=== PATIENT | male | born 1940 | race Caucasian/White ===

== ENCOUNTER → 2019-11-27 15:29 | Outpatient (CLI) | payer MEDICARE, OTHER, SELFPAY ==
[2019-11-27 18:27] LABS: Alanine Aminotransferase 36 IU/L (<50); Albumin 4.6 g/dL (3.5-5.0); Albumin Globulin Ratio 1.4 (1.0-2.8); Alkaline Phosphatase 47 U/L (38-126); Aspartate Aminotransferase 40 IU/L (17-59); BUN Creatinine Ratio 29.1 (6-22); Bilirubin Total 0.6 mg/dL (0.2-1.3); Blood Urea Nitrogen 39 mg/dL (9-20); Carbon Dioxide 22 mmol/L (22-32); Chloride 103 mmol/L (98-107); Digoxin 0.9 ng/mL (0.8-2.0); Estimated Glomerular Filt Rate 51.4 mL/min (>60); Globulin 3.2 g/dL (1.7-4.1); Glucose 188 mg/dL (80-110); Potassium 4.7 mmol/L (3.4-5.1); Sodium 138 mmol/L (137-145); Total Protein 7.8 g/dL (6.3-8.2)
[2019-11-27 18:29] LABS: HEMOLYSIS 80 (0-50)
== END ==
PROVIDERS: Family Provider Family Medicine; PCP Family Medicine; Referring Provider Nurse Practitioner; Visit Provider Nurse Practitioner
DX: Z51.81 Encounter for therapeutic drug level monitoring (principal); Z79.899 Other long term (current) drug therapy; I42.8 Other cardiomyopathies; I10 Essential (primary) hypertension
CPT/HCPCS: 36415; 80053; 80162

== ENCOUNTER → 2021-09-05 13:04 | Outpatient (CLI) | payer MEDICARE, OTHER, SELFPAY ==
[2021-09-05 19:25] LABS: BUN Creatinine Ratio 14.7 (6-22); Blood Urea Nitrogen 19 mg/dL (9-20); Calcium 9.7 mg/dL (8.4-10.2); Carbon Dioxide 29 mmol/L (22-32); Chloride 104 mmol/L (98-107); Estimated Glomerular Filt Rate 53.5 mL/min (>60); Glucose 200 mg/dL (80-110); HEMOLYSIS < 15 (0-50); Potassium 4.3 mmol/L (3.4-5.1); Sodium 142 mmol/L (137-145)
[2021-09-05 19:29] LABS: Digoxin 0.5 ng/mL (0.8-2.0)
== END ==
PROVIDERS: Family Provider Family Medicine; PCP Family Medicine; Visit Provider Internal Medicine Cardiovascular Disease
DX: I42.8 Other cardiomyopathies (principal); I10 Essential (primary) hypertension
CPT/HCPCS: 80048; 80162

== ENCOUNTER → 2021-09-23 11:28 | Outpatient (CLI) | payer MEDICARE, OTHER, SELFPAY ==
[2021-09-23 19:10] LABS: Add Manual Diff / Slide Review NO; Basophils Absolute Auto 100 /uL (0-100); Basophils Percent Auto 1.1 % (0-2); Eosinophils Absolute Auto 700 /uL (0-450); Eosinophils Percent Auto 10.7 % (2-4); Hematocrit 43.6 % (41-53); Hemoglobin 14.7 g/dL (13.5-17.5); Lymphocytes Absolute Auto 2300 /uL (1100-4500); Lymphocytes Percent Auto 35.8 % (25-40); Mean Corpuscular HGB Conc 33.7 % (30-36); Mean Corpuscular Hemoglobin 30.2 PG (26-34); Mean Corpuscular Volume 89.6 fL (80-100); Monocytes Absolute Auto 500 /uL (0-900); Monocytes Percent Auto 8.5 % (3-14); Neutrophils Absolute Auto 2800 /uL (1500-7000); Neutrophils Percent Auto 43.9 % (50-75); Platelet Count 173 X10^3/uL (150-400); Red Blood Cell Count 4.87 X10^6/uL (4.5-5.9); Red Cell Distribution Width 14.7 % (11.6-14.8); White Blood Cell Count 6.5 X10^3/uL (4.5-11.0)
[2021-09-23 19:27] LABS: Alanine Aminotransferase 39 IU/L (<50); Albumin 4.4 g/dL (3.5-5.0); Albumin Globulin Ratio 1.5 (1.0-2.8); Alkaline Phosphatase 33 U/L (38-126); Aspartate Aminotransferase 37 IU/L (17-59); BUN Creatinine Ratio 20.4 (6-22); Blood Urea Nitrogen 23 mg/dL (9-20); Calcium 9.7 mg/dL (8.4-10.2); Carbon Dioxide 28 mmol/L (22-32); Chloride 106 mmol/L (98-107); Cholesterol 176 mg/dL (140-199); Estimated Glomerular Filt Rate > 60.0 mL/min (>60); Glucose 72 mg/dL (80-110); HDL Cholesterol 27 mg/dL (40-60); HEMOLYSIS < 15 (0-50); LDL Cholesterol Calculated 101 mg/dL (<100); Potassium 4.1 mmol/L (3.4-5.1); Sodium 142 mmol/L (137-145); Total Protein 7.4 g/dL (6.3-8.2); Triglycerides 238 mg/dL (35-150)
[2021-09-23 19:28] LABS: Hemoglobin A1C% w Est Avg Glu 6.4 % (4.0-6.0)
== END ==
PROVIDERS: Family Provider Family Medicine; PCP Physician Assistant; Visit Provider Physician Assistant
DX: R97.20 Elevated prostate specific antigen [PSA] (principal); E11.40 Type 2 diabetes mellitus with diabetic neuropathy, unspecified; E78.5 Hyperlipidemia, unspecified; I10 Essential (primary) hypertension; Z12.5 Encounter for screening for malignant neoplasm of prostate
CPT/HCPCS: 80053; 80061; 83036; 84153; 85025

== ENCOUNTER → 2022-05-11 14:04 | Outpatient (CLI) | payer MEDICARE, OTHER, SELFPAY ==
[2022-05-11 19:58] LABS: Add Manual Diff / Slide Review NO; Basophils Absolute Auto 0 /uL (0-100); Basophils Percent Auto 0.6 % (0-2); Eosinophils Absolute Auto 300 /uL (0-450); Eosinophils Percent Auto 4.3 % (2-4); Hematocrit 45.3 % (41-53); Hemoglobin 15.4 g/dL (13.5-17.5); Lymphocytes Absolute Auto 2900 /uL (1100-4500); Mean Corpuscular HGB Conc 33.9 % (30-36); Mean Corpuscular Hemoglobin 30.3 PG (26-34); Mean Corpuscular Volume 89.3 fL (80-100); Monocytes Absolute Auto 600 /uL (0-900); Monocytes Percent Auto 7.4 % (3-14); Neutrophils Absolute Auto 3900 /uL (1500-7000); Neutrophils Percent Auto 50.7 % (50-75); Platelet Count 170 X10^3/uL (150-400); Red Blood Cell Count 5.07 X10^6/uL (4.5-5.9); Red Cell Distribution Width 14.4 % (11.6-14.8); White Blood Cell Count 7.7 X10^3/uL (4.5-11.0)
[2022-05-11 20:01] LABS: Hemoglobin A1C% w Est Avg Glu 6.7 % (4.0-6.0)
[2022-05-11 20:05] LABS: Digoxin 0.6 ng/mL (0.8-2.0)
[2022-05-11 20:46] LABS: Alanine Aminotransferase 41 IU/L (<50); Albumin 4.5 g/dL (3.5-5.0); Albumin Globulin Ratio 1.6 (1.0-2.8); Alkaline Phosphatase 38 U/L (38-126); Aspartate Aminotransferase 37 IU/L (17-59); BUN Creatinine Ratio 24.8 (6-22); Bilirubin Total 0.9 mg/dL (0.2-1.3); Blood Urea Nitrogen 26 mg/dL (9-20); Calcium 9.4 mg/dL (8.4-10.2); Carbon Dioxide 27 mmol/L (22-32); Chloride 105 mmol/L (98-107); Estimated Glomerular Filt Rate > 60 mL/min (>60); Globulin 2.8 g/dL (1.7-4.1); Glucose 85 mg/dL (80-110); HEMOLYSIS < 15 (0-50); Potassium 4.4 mmol/L (3.4-5.1); Sodium 141 mmol/L (137-145); Total Protein 7.3 g/dL (6.3-8.2)
== END ==
PROVIDERS: Internal Medicine Cardiovascular Disease; Family Provider Family Medicine; PCP Physician Assistant; Visit Provider Physician Assistant
DX: E11.40 Type 2 diabetes mellitus with diabetic neuropathy, unspecified (principal); I50.20 Unspecified systolic (congestive) heart failure; N18.9 Chronic kidney disease, unspecified; Z79.4 Long term (current) use of insulin; D72.10 Eosinophilia, unspecified
CPT/HCPCS: 80053; 80162; 83036; 85025

== ENCOUNTER → 2022-05-25 11:59 | Outpatient (CLI) | payer MEDICARE, OTHER, SELFPAY ==
--- NOTE | 2022-05-25 12:02 | DI.ECHO.S_ITS ---
[facility] +---------+ : : [address] : [place] : : : : [id number] : : : : Phone: [phone]---------+ Echocardiogram Report + + :Name: JOSE WATKINS Study Date: 05/25/2022 Height: 73 in : :[facility] ReadingLocation: Weight: 184 lb : : Gender: Male BSA: 2.1 m2 : :: 1940 Age: 82 yrs BP: 151/79 mmHg: :Reason For Study: SYSTOLIC HEART FAILURE : :Ordering Physician: RHONDA, : :DAFNE Performed By: Catherine Hodge : :Referring: DAFNE ELLIS : + + Interpretation Summary The left ventricle is mild-moderately dilated. LV end-diastolic dimension increased from 6.1cm to 6.3 cm. Left ventricular ejection fraction is estimated to be 35 +/- 5%. Previous LVEF 45A?5%. Compared to the prior exam, the left ventricular function is reduced. Global moderate hypokinesis with severe hypokinesis of inferior wall, basal to mid inferior septum. No significant change from the previous study. Mild LV dyssynchrony seen as well The right ventricle is normal in size and function. There is a pacemaker lead in the right ventricle. There is moderate mitral regurgitation. Previously mild to moderate MR. There is mild tricuspid regurgitation. The right ventricular systolic pressure is estimated to be at least 30 mmHg based on an estimated right atrial pressure of 3 mm Hg. Procedure: A two-dimensional transthoracic echocardiogram with color flow and Doppler was performed. The study quality was technically adequate. Comparison is made with the echocardiogram of 09/05/2017. The heart rate ranged between 58-69 bpm during the study. The patient has a paced rhythm. Left Ventricle: The left ventricle is mild-moderately dilated. Left ventricular wall thickness is at the upper limits of normal. There is no thrombus. A false chord is noted (normal variant). Left ventricular ejection fraction is estimated to be 35 +/- 5%. Compared to the prior exam, the left ventricular function is reduced. Global moderate hypokinesis with severe hypokinesis of inferior wall, basal to mid inferior septum. No significant change from the previous study. Mild LV dyssynchrony seen as well. Diastolic parameters suggest a relaxation abnormality of the left ventricle, consistent with probable normal filling pressures. Right Ventricle: There is a pacemaker lead in the right ventricle. The right ventricle is normal in size and function. Atria: The left atrium is severely dilated. The left atrium has significantly increased in size since the prior echo exam. Right atrial size is normal. There is no Doppler evidence for an interatrial shunt. Mitral Valve: There is mild mitral annular calcification. Tented mitral leaflets. There is moderate mitral regurgitation. Aortic Valve: The aortic valve is trileaflet. The aortic valve opens well. There is no aortic valve stenosis. No aortic regurgitation is present. Tricuspid Valve: The tricuspid valve is normal in structure and function. There is mild tricuspid regurgitation. The right ventricular systolic pressure is estimated to be at least 30 mmHg based on an estimated right atrial pressure of 3 mm Hg. Pulmonic Valve: The pulmonic valve leaflets are thin and pliable; valve motion is normal. There is no pulmonic valvular regurgitation. Great Vessels: The aortic root is mildly dilated. The dimensions of the ascending aorta are normal. The IVC is of normal diameter and collapses greater than 50% with a sniff. This suggests a low right atrial pressure of 3 mm Hg. Pericardium/ Pleura There is no pericardial effusion. There is no pleural effusion. MMode/2D Measurements & Calculations LVIDd: 6.3 cm LVOT diam: 2.4 cm LVIDs: 5.2 cm Ao root diam: 4.1 cm FS: 17.5 % asc Aorta Diam: 3.2 cm EPSS: 2.3 cm Ao Arch Diam (Prox Trans): 3.0 cm IVSd: 0.97 cm LVPWd: 1.2 cm LV wright. diameter/BSA (cm/m^2): 3.0 LV sys. diameter/BSA (cm/m^2): 2.5 LA A2 area: 30.2 cm2 RA long axis: 6.2 cm LA A4 area: 24.3 cm2 RA area: 18.9 cm2 LA length (vol): 5.8 cm RA vol: 49.1 ml LA vol: 107.5 ml RA : 23.6 ml/m2 LA vol index: 51.8 ml/m2 IVC diam: 1.4 cm RVD1 (basal): 3.9 cm RVD2 (mid): 3.1 cm TAPSE: 2.6 cm Doppler Measurements & Calculations Ao V2 max: 131.6 cm/sec LVOT Max Adam: 63.8 cm/sec Ao V2 mean: 98.2 cm/sec LV V1 max P.6 mmHg Ao max P.9 mmHg LV V1 VTI: 13.3 cm Ao mean P.1 mmHg RAMIREZ(I,D): 2.1 cm2 Ao V2 VTI: 29.2 cm RAMIREZ(V,D): 2.2 cm2 sev ratio: 0.46 RAMIREZ indexed to BSA (cm^2/m^2): 1.00 MV E max adam: 42.9 cm/sec TR max adam: 258.0 cm/sec MV A max adam: 84.1 cm/sec TR max P.6 mmHg MV E/A: 0.51 PA V2 max: 83.2 cm/sec Med Peak E' Adam: 5.3 cm/sec PA V2 mean: 60.7 cm/sec E/E' med: 8.1 PA mean P.6 mmHg Lat Peak E' Adam: 4.0 cm/sec PA pr(Accel): 15.6 mmHg E/E' lat: 10.9 E/e' average: 9.5 MV dec time: 0.28 sec SV(LVOT): 60.5 ml Reading Physician:04:51 PM
== END ==
PROVIDERS: Family Provider Family Medicine; PCP Physician Assistant; Referring Provider Internal Medicine Cardiovascular Disease; Visit Provider Internal Medicine Cardiovascular Disease
DX: I50.20 Unspecified systolic (congestive) heart failure (principal); Z95.0 Presence of cardiac pacemaker; I34.0 Nonrheumatic mitral (valve) insufficiency; I07.1 Rheumatic tricuspid insufficiency
CPT/HCPCS: 93306

== ENCOUNTER → 2022-05-31 11:54 | Outpatient (CLI) | payer MEDICARE, OTHER, SELFPAY | PROVIDERS: Family Provider Family Medicine; PCP Physician Assistant; Visit Provider Physician Assistant | DX: R35.0 Frequency of micturition (principal) | CPT/HCPCS: 87077; 87086; 87186 ==

== ENCOUNTER → 2022-06-06 11:16 | Outpatient (CLI) | payer MEDICARE, OTHER, SELFPAY ==
[2022-06-06 14:24] LABS: BUN Creatinine Ratio 24.1 (6-22); Blood Urea Nitrogen 26 mg/dL (9-20); Calcium 9.3 mg/dL (8.4-10.2); Carbon Dioxide 28 mmol/L (22-32); Chloride 102 mmol/L (98-107); Estimated Glomerular Filt Rate > 60 mL/min (>60); Glucose 60 mg/dL (80-110); HEMOLYSIS < 15 (0-50); Potassium 4.5 mmol/L (3.4-5.1); Sodium 142 mmol/L (137-145)
== END ==
PROVIDERS: Family Provider Family Medicine; PCP Physician Assistant; Referring Provider Urology; Visit Provider Urology
DX: C61 Malignant neoplasm of prostate (principal); Z80.42 Family history of malignant neoplasm of prostate; R97.20 Elevated prostate specific antigen [PSA]; R39.9 Unspecified symptoms and signs involving the genitourinary system; R35.0 Frequency of micturition
CPT/HCPCS: 36415; 80048; 99214

== ENCOUNTER → 2022-06-15 08:25 | Outpatient (CLI) | payer MEDICARE, OTHER, SELFPAY ==
--- NOTE | 2022-06-15 08:26 | DI.CT.S_ITS ---
PROCEDURE: CT ABDOMEN PELVIS W CON INDICATIONS: New diagnosis prostate cancer TECHNIQUE: After the administration of intravenous contrast, axial sections acquired from the lung bases to the pubic symphysis. Coronal and sagittal reformats were performed. For radiation dose reduction, the following was used: automated exposure control, adjustment of mA and/or kV according to patient size. COMPARISON: None. FINDINGS: Image quality: Diagnostic Lung bases: Bibasilar atelectasis. Heart: Heart size is mildly enlarged. Coronary atherosclerosis. ABDOMEN: Liver: There is diffuse hypoattenuation of the liver parenchyma relative to the spleen compatible with hepatic steatosis. Gallbladder: Small gallstones noted in the dependent portions of the gallbladder without associated wall thickening or pericholecystic inflammation. Biliary ducts: Unremarkable. Pancreas: Unremarkable. Spleen: Unremarkable. Adrenal Glands: Unremarkable. Kidneys and Ureters: Nonobstructing 4 mm right renal stone. Otherwise, no hydronephrosis or perinephric stranding. Bilateral ureters are normal in course and caliber. Stomach and Bowel: Stomach, small bowel loops, and colon are unremarkable. No acute inflammatory changes. Peritoneum: No abnormal intraperitoneal fluid. No free air. Ventral Wall: There is a fat-containing umbilical hernia without acute inflammation. Abdominal Nodes: No retroperitoneal or mesenteric adenopathy by size criteria. Vessels: Scattered atherosclerotic calcifications of the abdominal aorta and iliac vessels without aneurysmal dilatation. The inferior vena cava appears patent. PELVIS: Pelvic Organs: The prostate gland is enlarged measuring approximately 8.1 x 6.3 cm in axial cross-sectional dimension (image 83/series 2). Bladder: Minimal circumferential wall thickening of the urinary bladder likely related to incomplete distension. No perivesicular inflammation. Pelvic Nodes: There is a minimally prominent right pelvic sidewall lymph node measuring approximately 8 mm in short axis dimension (image 74/series 2). Additionally, small 5 mm right presacral lymph node is visualized on image 72/series 2. Otherwise, no other suspicious pelvic adenopathy identified. Miscellaneous: No hernias are seen. Bones: No acute compression fractures. Moderate multilevel lumbar spondylosis of the imaged spine. No definite suspicious osseous lesions identified. IMPRESSION: 1. CT abdomen and pelvis without acute abnormalities. 2. Enlarged, heterogeneous prostate gland consistent with reported history of prostate cancer. Nonspecific prominent right pelvic sidewall lymph node measuring 8 mm in short axis dimension with small right presacral lymph node measuring 5 mm. Otherwise, no CT evidence to suggest distant metastatic disease. No definite osseous lesions identified on this exam. Patient is scheduled for nuclear medicine bone scan later same day. 3. Cholelithiasis without acute cholecystitis. 4. Atherosclerosis. 5. Hepatic steatosis. 6. Nonobstructing 4 mm right renal stone. No hydronephrosis. Dictated by: Vic Roper M.D. on 06/15/2022 at 9:54 Approved by: Vic Roper M.D. on 06/15/2022 at 10:09
--- NOTE | 2022-06-15 08:26 | DI.NM.S_ITS ---
PROCEDURE: NM BONE SCAN WHOLE BODY RADIOPHARMACEUTICAL: 22 mCi Tc-99m MDP IV. INDICATIONS: New diagnosis prostate cancer TECHNIQUE: Delayed whole-body scintigrams were obtained approximately 3-4 hours after intravenous injection of radiotracer. Anterior and posterior views were acquired from vertex to feet. Additional left and right oblique views of the pelvis were obtained. COMPARISON: CT, LOWER EXTREMITY WO CONTRAST, 10/10/2007, 10:54. [facility], CT, CT ABDOMEN PELVIS W CON, 06/15/2022, 8:36. FINDINGS: Physiologic uptake is noted within the kidneys and bladder. There is a large focus of uptake overlying the left humeral head as well as right ankle. Significant uptake is also identified at multiple levels of the thoracic and lumbar spine. Relatively prominent uptake is also noted within the left ankle. Increased uptake is also noted within the knees. IMPRESSION: Large focus of uptake within the left humeral head as well as right ankle. While this could represent metastatic disease, further evaluation with x-rays of these regions are recommended as evaluation is otherwise limited on the basis of this exam. Multifocal areas of uptake within the spine somewhat equivocal. These areas correspond to degenerative areas identified on CT abdomen pelvis of 06/15/2022. However, given history of prostate cancer, interval follow-up attention to these regions is recommended as metastatic disease cannot be excluded. Increased uptake within the left ankle possibly degenerative or related to prior trauma/surgery. However, it is quite prominent and ankle x-ray is recommended for further evaluation and correlation. Dictated by: Dayna Tenorio M.D. on 06/15/2022 at 16:53 Approved by: Dayna Tenorio M.D. on 06/15/2022 at 16:56
== END ==
PROVIDERS: Family Provider Family Medicine; PCP Physician Assistant; Referring Provider Urology; Visit Provider Urology
DX: C61 Malignant neoplasm of prostate (principal); I51.7 Cardiomegaly; I25.10 Atherosclerotic heart disease of native coronary artery without angina pectoris; K80.20 Calculus of gallbladder without cholecystitis without obstruction; K76.0 Fatty (change of) liver, not elsewhere classified; N20.0 Calculus of kidney
CPT/HCPCS: 74177; 78306; A9503

== ENCOUNTER → 2022-08-21 08:34 | Outpatient (CLI) | payer MEDICARE, OTHER, SELFPAY ==
[2022-08-21 11:00] LABS: Cholesterol 184 mg/dL (140-199); HDL Cholesterol 29 mg/dL (40-60); LDL Cholesterol Calculated 114 mg/dL (<100); Triglycerides 207 mg/dL (35-150)
[2022-08-22 17:07] LABS: Hemoglobin A1C% w Est Avg Glu 6.8 % (4.0-6.0)
== END ==
PROVIDERS: Family Provider Family Medicine; PCP Physician Assistant; Referring Provider Physician Assistant; Visit Provider Physician Assistant
DX: E11.40 Type 2 diabetes mellitus with diabetic neuropathy, unspecified (principal); Z79.4 Long term (current) use of insulin
CPT/HCPCS: 36415; 80061; 83036

== ENCOUNTER → 2022-10-05 10:19 | Outpatient (CLI) | payer MEDICARE, OTHER, SELFPAY ==
[2022-10-05 11:06] LABS: COVID19 -Nasal RAPID Negative (Negative)
== END ==
PROVIDERS: Family Provider Family Medicine; PCP Physician Assistant; Visit Provider Urology
DX: C61 Malignant neoplasm of prostate (principal); N18.9 Chronic kidney disease, unspecified; R97.20 Elevated prostate specific antigen [PSA]; R35.0 Frequency of micturition; R39.9 Unspecified symptoms and signs involving the genitourinary system; Z20.822 Contact with and (suspected) exposure to COVID-19; Z79.818 Long term (current) use of other agents affecting estrogen receptors and estrogen levels; Z80.42 Family history of malignant neoplasm of prostate
CPT/HCPCS: 87635; 96402; 99214; J9217

== ENCOUNTER → 2022-10-23 10:04 | Outpatient (CLI) | payer MEDICARE, OTHER, SELFPAY ==
--- NOTE | 2022-10-23 | DI.ECHO.S_ITS ---
[facility]---------+ [facility] +---------+ : : [address] : [address] : : [place] : : : : [phone] : : : : Phone: [phone] +---------+ Echocardiogram Report + + :Name: JOSE WATKINS Study Date: 10/23/2022 Height: 73 in : :[facility] ReadingLocation: Weight: 188 lb : : Gender: Male BSA: 2.1 m2 : :: 1940 Age: 82 yrs BP: 122/57 mmHg: :Reason For Study: Nonischemic cardiomyopathy, Nonrheumatic : :mitral regurgitation : :Ordering Physician: Carissa : :Bruno Tan Performed By: Catherine Terrazas : :Referring: CARISSA TAN : + + Interpretation Summary Limited Echo: 1) Upper normal left ventricular size with moderately reduced systolic function (EF 35-40%). 2) There is mild mitral regurgitation. 3) Compared to the Echo done , mitral regurgitation has decreased from moderate to mild on this study. Procedure: A two-dimensional transthoracic echocardiogram with color flow and Doppler was performed in limited views only. The patient has a paced rhythm. The heart rate ranged between 51-72 bpm during the study. Left Ventricle: There is normal left ventricular wall thickness. Left ventricular size is at the upper limits of normal. The ejection fraction is estimated to be 35-40%. This is unchanged compared to the previous study. Mitral Valve: There is mild mitral regurgitation. This is a decrease compared to the previous study. Pericardium/ Pleura There is no pericardial effusion. MMode/2D Measurements & Calculations LVIDd: 5.6 cm LVLs ap4: 7.0 cm LVIDs: 4.6 cm FS: 17.9 % IVSd: 1.0 cm LVPWd: 1.0 cm LV wright. diameter/BSA (cm/m^2): 2.7 LV sys. diameter/BSA (cm/m^2): 2.2 LVLd ap2: 8.7 cm LVLs ap2: 6.6 cm Reading Physician:02:13 PM
== END ==
PROVIDERS: Family Provider Family Medicine; PCP Physician Assistant; Referring Provider Internal Medicine Cardiovascular Disease; Visit Provider Internal Medicine Cardiovascular Disease
DX: I42.8 Other cardiomyopathies (principal); I34.0 Nonrheumatic mitral (valve) insufficiency
CPT/HCPCS: 93307

== ENCOUNTER → 2022-11-21 14:01 | Outpatient (CLI) | payer MEDICARE, OTHER, SELFPAY ==
[2022-11-21 19:59] LABS: Prostate Specific Antigen 2.06 ng/mL (0.10-4.00)
== END ==
PROVIDERS: Family Provider Family Medicine; PCP Physician Assistant; Visit Provider Urology
DX: C61 Malignant neoplasm of prostate (principal)
CPT/HCPCS: 84153

== ENCOUNTER → 2022-12-14 13:07 | Outpatient (CLI) | payer MEDICARE, OTHER, SELFPAY ==
[2022-12-14 20:06] LABS: Alanine Aminotransferase 31 IU/L (<50); Albumin 3.8 g/dL (3.5-5.0); Albumin Globulin Ratio 1.4 (1.0-2.8); Alkaline Phosphatase 41 U/L (38-126); Aspartate Aminotransferase 28 IU/L (17-59); BUN Creatinine Ratio 28.1 (6-22); Bilirubin Total 0.7 mg/dL (0.2-1.3); Blood Urea Nitrogen 32 mg/dL (9-20); Calcium 9.2 mg/dL (8.4-10.2); Carbon Dioxide 28 mmol/L (22-32); Chloride 102 mmol/L (98-107); Estimated Glomerular Filt Rate > 60 mL/min (>60); Globulin 2.8 g/dL (1.7-4.1); Glucose 237 mg/dL (80-110); HEMOLYSIS < 15 (0-50); Potassium 4.9 mmol/L (3.4-5.1); Sodium 138 mmol/L (137-145); Total Protein 6.6 g/dL (6.3-8.2)
[2022-12-16 06:10] LABS: Labcorp Hemoglobin (Hb) A1c 7.9 % (4.8-5.6)
== END ==
PROVIDERS: Family Provider Family Medicine; PCP Physician Assistant; Visit Provider Physician Assistant
DX: N18.9 Chronic kidney disease, unspecified (principal); R61 Generalized hyperhidrosis
CPT/HCPCS: 80053; 83036

== ENCOUNTER → 2023-05-01 09:21 | Outpatient (CLI) | payer MEDICARE, OTHER, SELFPAY ==
[2023-05-01 10:45] LABS: Digoxin 0.6 ng/mL (0.8-2.0)
[2023-05-01 10:54] LABS: Alanine Aminotransferase 24 IU/L (<50); Albumin 4.1 g/dL (3.5-5.0); Albumin Globulin Ratio 1.4 (1.0-2.8); Alkaline Phosphatase 36 U/L (38-126); Aspartate Aminotransferase 29 IU/L (17-59); BUN Creatinine Ratio 23.9 (6-22); Bilirubin Total 0.7 mg/dL (0.2-1.3); Blood Urea Nitrogen 28 mg/dL (9-20); Calcium 9.4 mg/dL (8.4-10.2); Carbon Dioxide 29 mmol/L (22-32); Chloride 102 mmol/L (98-107); Estimated Glomerular Filt Rate > 60 mL/min (>60); Globulin 2.9 g/dL (1.7-4.1); Glucose 78 mg/dL (80-110); HEMOLYSIS < 15 (0-50); Potassium 4.3 mmol/L (3.4-5.1); Sodium 140 mmol/L (137-145)
[2023-05-01 11:14] LABS: Prostate Specific Antigen 0.114 ng/mL (0.10-4.00)
[2023-05-01 11:40] LABS: Vitamin B12 Reflex MMA if <400 359 pg/mL (239-931)
[2023-05-01 11:40] LABS: Creatinine Urine Random 192.8 mg/dL
[2023-05-01 11:44] LABS: Microalbumi Creatinin Ratio Ur 54.9 ug/mg CR (<30); Microalbumin Urine Random 10.6 mg/dL (0-1.6)
[2023-05-03 23:36] LABS: Methylmalonic Acid,Serum 238 nmol/L (0-378)
== END ==
PROVIDERS: Urology; Family Provider Family Medicine; PCP Physician Assistant; Referring Provider Family Medicine; Visit Provider Family Medicine
DX: N18.9 Chronic kidney disease, unspecified (principal); C61 Malignant neoplasm of prostate; I10 Essential (primary) hypertension; R20.0 Anesthesia of skin; E11.40 Type 2 diabetes mellitus with diabetic neuropathy, unspecified; Z79.4 Long term (current) use of insulin; R20.2 Paresthesia of skin
CPT/HCPCS: 36415; 80053; 80162; 82043; 82570; 82607; 83921; 84153

== ENCOUNTER → 2023-06-21 11:06 | Outpatient (CLI) | payer MEDICARE, OTHER, SELFPAY ==
[2023-06-21 19:41] LABS: Add Manual Diff / Slide Review NO; Basophils Absolute Auto 0 /uL (0-100); Basophils Percent Auto 0.7 % (0-2); Eosinophils Absolute Auto 400 /uL (0-450); Eosinophils Percent Auto 5.8 % (2-4); Hematocrit 36.5 % (41-53); Hemoglobin 12.5 g/dL (13.5-17.5); Lymphocytes Absolute Auto 1700 /uL (1100-4500); Lymphocytes Percent Auto 27.8 % (25-40); Mean Corpuscular HGB Conc 34.3 % (30-36); Mean Corpuscular Hemoglobin 30.2 PG (26-34); Mean Corpuscular Volume 87.8 fL (80-100); Monocytes Absolute Auto 500 /uL (0-900); Monocytes Percent Auto 8.1 % (3-14); Neutrophils Absolute Auto 3600 /uL (1500-7000); Neutrophils Percent Auto 57.6 % (50-75); Platelet Count 187 X10^3/uL (150-400); Red Blood Cell Count 4.16 X10^6/uL (4.5-5.9); Red Cell Distribution Width 14.4 % (11.6-14.8); White Blood Cell Count 6.2 X10^3/uL (4.5-11.0)
[2023-06-21 19:51] LABS: BUN Creatinine Ratio 27.4 (6-22); Blood Urea Nitrogen 31 mg/dL (9-20); Calcium 9.9 mg/dL (8.4-10.2); Carbon Dioxide 26 mmol/L (22-32); Chloride 104 mmol/L (98-107); Estimated Glomerular Filt Rate > 60 mL/min (>60); Glucose 86 mg/dL (80-110); HEMOLYSIS < 15 (0-50); Potassium 4.3 mmol/L (3.4-5.1); Sodium 139 mmol/L (137-145)
== END ==
PROVIDERS: Family Provider Family Medicine; PCP Physician Assistant; Visit Provider Physician Assistant Medical
DX: I50.22 Chronic systolic (congestive) heart failure (principal)
CPT/HCPCS: 80048; 85025

== ENCOUNTER → 2023-07-24 13:55 | Outpatient (CLI) | payer MEDICARE, OTHER, SELFPAY ==
[2023-07-24 19:28] LABS: Add Manual Diff / Slide Review NO; Basophils Absolute Auto 0 /uL (0-100); Basophils Percent Auto 0.4 % (0-2); Eosinophils Absolute Auto 400 /uL (0-450); Eosinophils Percent Auto 5.8 % (2-4); Hematocrit 34.8 % (41-53); Hemoglobin 11.8 g/dL (13.5-17.5); Lymphocytes Absolute Auto 1600 /uL (1100-4500); Lymphocytes Percent Auto 24.6 % (25-40); Mean Corpuscular Hemoglobin 30.2 PG (26-34); Mean Corpuscular Volume 88.9 fL (80-100); Monocytes Absolute Auto 500 /uL (0-900); Neutrophils Absolute Auto 3800 /uL (1500-7000); Neutrophils Percent Auto 61.2 % (50-75); Platelet Count 183 X10^3/uL (150-400); Red Blood Cell Count 3.91 X10^6/uL (4.5-5.9); Red Cell Distribution Width 14.6 % (11.6-14.8); White Blood Cell Count 6.3 X10^3/uL (4.5-11.0)
[2023-07-24 19:31] LABS: HEMOLYSIS < 15 (0-50); Iron 124 ug/dL (49-181)
[2023-07-24 19:39] LABS: Reticulocyte Count, Percent 1.4 % (0.9-2.6)
[2023-07-24 19:44] LABS: LDL Cholesterol Direct 101 mg/dL (<100); Percent Iron Saturation 38 % (20-50); Total Iron Binding Capacity 327 ug/dL (261-462); Transferrin 244 mg/dL (206-381)
[2023-07-24 21:02] LABS: Ferritin 126 ng/mL (18-464); Prostate Specific Antigen < 0.064 ng/mL (0.10-4.00)
[2023-07-24 21:33] LABS: Folate 6.9 ng/mL (2.76-20.0); Vitamin B12 Reflex MMA if <400 280 pg/mL (239-931)
[2023-07-28 14:36] LABS: Methylmalonic Acid,Serum 248 nmol/L (0-378)
== END ==
PROVIDERS: Urology; Family Provider Family Medicine; PCP Family Medicine; Visit Provider Family Medicine
DX: D64.9 Anemia, unspecified (principal); E78.5 Hyperlipidemia, unspecified; C61 Malignant neoplasm of prostate
CPT/HCPCS: 82607; 82728; 82746; 83540; 83550; 83721; 83921; 84153; 85025; 85045

== ENCOUNTER → 2023-08-16 14:46 | Outpatient (CLI) | payer MEDICARE, OTHER, SELFPAY ==
[2023-08-16 21:10] LABS: Alanine Aminotransferase 18 IU/L (<50); Albumin 3.8 g/dL (3.5-5.0); Albumin Globulin Ratio 1.4 (1.0-2.8); Alkaline Phosphatase 37 U/L (38-126); Aspartate Aminotransferase 26 IU/L (17-59); BUN Creatinine Ratio 31.3 (6-22); Bilirubin Total 0.8 mg/dL (0.2-1.3); Blood Urea Nitrogen 31 mg/dL (9-20); Calcium 9.5 mg/dL (8.4-10.2); Carbon Dioxide 27 mmol/L (22-32); Chloride 105 mmol/L (98-107); Estimated Glomerular Filt Rate > 60 mL/min (>60); Globulin 2.8 g/dL (1.7-4.1); HEMOLYSIS < 15 (0-50); Potassium 4.3 mmol/L (3.4-5.1); Sodium 138 mmol/L (137-145); Total Protein 6.6 g/dL (6.3-8.2)
[2023-08-16 21:14] LABS: Add Manual Diff / Slide Review NO; Basophils Absolute Auto 0 /uL (0-100); Basophils Percent Auto 0.6 % (0-2); Eosinophils Absolute Auto 400 /uL (0-450); Eosinophils Percent Auto 6.1 % (2-4); Hematocrit 33.3 % (41-53); Hemoglobin 11.4 g/dL (13.5-17.5); Lymphocytes Absolute Auto 1800 /uL (1100-4500); Lymphocytes Percent Auto 25.6 % (25-40); Mean Corpuscular HGB Conc 34.3 % (30-36); Mean Corpuscular Hemoglobin 30.5 PG (26-34); Mean Corpuscular Volume 88.9 fL (80-100); Monocytes Absolute Auto 600 /uL (0-900); Neutrophils Absolute Auto 4200 /uL (1500-7000); Neutrophils Percent Auto 58.7 % (50-75); Platelet Count 206 X10^3/uL (150-400); Red Blood Cell Count 3.74 X10^6/uL (4.5-5.9); Red Cell Distribution Width 14.3 % (11.6-14.8); White Blood Cell Count 7.1 X10^3/uL (4.5-11.0)
[2023-08-16 23:33] LABS: Glucose 42 mg/dL (80-110)
== END ==
PROVIDERS: Family Provider Family Medicine; PCP Family Medicine; Visit Provider Family Medicine
DX: E11.649 Type 2 diabetes mellitus with hypoglycemia without coma (principal); D64.9 Anemia, unspecified; E11.3299 Type 2 diabetes mellitus with mild nonproliferative diabetic retinopathy without macular edema, unspecified eye; E11.22 Type 2 diabetes mellitus with diabetic chronic kidney disease; I12.9 Hypertensive chronic kidney disease with stage 1 through stage 4 chronic kidney disease, or unspecified chronic kidney disease; N18.2 Chronic kidney disease, stage 2 (mild); R47.89 Other speech disturbances
CPT/HCPCS: 80053; 85025

== ENCOUNTER → 2023-12-17 13:26 | Outpatient (CLI) | payer MEDICARE, OTHER, SELFPAY ==
[2023-12-17 19:35] LABS: Prostate Specific Antigen < 0.064 ng/mL (0.10-4.00)
== END ==
PROVIDERS: Family Provider Family Medicine; PCP Family Medicine; Visit Provider Urology
DX: C61 Malignant neoplasm of prostate (principal); R39.9 Unspecified symptoms and signs involving the genitourinary system
CPT/HCPCS: 84153

== ENCOUNTER → 2024-01-03 09:39 | Outpatient (CLI) | payer MEDICARE, OTHER, SELFPAY ==
[2024-01-03 18:56] LABS: Add Manual Diff / Slide Review NO; Basophils Absolute Auto 100 /uL (0-100); Basophils Percent Auto 0.6 % (0-2); Eosinophils Absolute Auto 300 /uL (0-450); Eosinophils Percent Auto 3.1 % (2-4); Hematocrit 35.9 % (41-53); Hemoglobin 12.3 g/dL (13.5-17.5); Lymphocytes Absolute Auto 1200 /uL (1100-4500); Lymphocytes Percent Auto 13.5 % (25-40); Mean Corpuscular HGB Conc 34.3 % (30-36); Mean Corpuscular Hemoglobin 30.7 PG (26-34); Mean Corpuscular Volume 89.5 fL (80-100); Monocytes Absolute Auto 700 /uL (0-900); Monocytes Percent Auto 8.5 % (3-14); Neutrophils Absolute Auto 6500 /uL (1500-7000); Neutrophils Percent Auto 74.3 % (50-75); Platelet Count 208 X10^3/uL (150-400); Red Blood Cell Count 4.01 X10^6/uL (4.5-5.9); Red Cell Distribution Width 13.7 % (11.6-14.8); White Blood Cell Count 8.7 X10^3/uL (4.5-11.0)
[2024-01-03 19:07] LABS: Alanine Aminotransferase 22 IU/L (<50); Albumin 4.2 g/dL (3.5-5.0); Albumin Globulin Ratio 1.6 (1.0-2.8); Alkaline Phosphatase 55 U/L (38-126); Aspartate Aminotransferase 19 IU/L (17-59); BUN Creatinine Ratio 28.4 (6-22); Bilirubin Total 0.7 mg/dL (0.2-1.3); Blood Urea Nitrogen 38 mg/dL (9-20); Calcium 9.9 mg/dL (8.4-10.2); Carbon Dioxide 29 mmol/L (22-32); Chloride 101 mmol/L (98-107); Estimated Glomerular Filt Rate 53 mL/min (>60); Globulin 2.6 g/dL (1.7-4.1); Glucose 390 mg/dL (80-110); HEMOLYSIS < 15 (0-50); Potassium 4.1 mmol/L (3.4-5.1); Sodium 137 mmol/L (137-145); Total Protein 6.8 g/dL (6.3-8.2)
[2024-01-03 19:20] LABS: Hemoglobin A1C% w Est Avg Glu 10.2 % (4.0-6.0)
[2024-01-03 19:23] LABS: Erythrocyte Sedimentation Rate 52 MM/HR (0-15)
[2024-01-03 19:39] LABS: TSH w/ Reflex to FT4 0.99 uIU/mL (0.47-4.68)
== END ==
PROVIDERS: Family Provider Family Medicine; PCP Family Medicine; Visit Provider Family Medicine
DX: E11.65 Type 2 diabetes mellitus with hyperglycemia (principal); E11.3299 Type 2 diabetes mellitus with mild nonproliferative diabetic retinopathy without macular edema, unspecified eye; E11.22 Type 2 diabetes mellitus with diabetic chronic kidney disease; I12.9 Hypertensive chronic kidney disease with stage 1 through stage 4 chronic kidney disease, or unspecified chronic kidney disease; N18.2 Chronic kidney disease, stage 2 (mild); R53.1 Weakness
CPT/HCPCS: 80053; 83036; 84443; 85025; 85651; 86140

== ENCOUNTER → 2024-08-11 09:16 | Outpatient (CLI) | payer MEDICARE, OTHER, SELFPAY ==
[2024-08-11 19:16] LABS: Add Manual Diff / Slide Review NO; Basophils Absolute Auto 0 /uL (0-100); Basophils Percent Auto 0.6 % (0-2); Eosinophils Absolute Auto 400 /uL (0-450); Eosinophils Percent Auto 4.6 % (2-4); Hematocrit 35.9 % (41-53); Hemoglobin 12.1 g/dL (13.5-17.5); Lymphocytes Absolute Auto 2400 /uL (1100-4500); Lymphocytes Percent Auto 29.9 % (25-40); Mean Corpuscular HGB Conc 33.7 % (30-36); Mean Corpuscular Hemoglobin 30.6 PG (26-34); Mean Corpuscular Volume 90.9 fL (80-100); Monocytes Absolute Auto 600 /uL (0-900); Monocytes Percent Auto 7.3 % (3-14); Neutrophils Absolute Auto 4500 /uL (1500-7000); Neutrophils Percent Auto 57.6 % (50-75); Platelet Count 207 X10^3/uL (150-400); Red Blood Cell Count 3.94 X10^6/uL (4.5-5.9); Red Cell Distribution Width 14.5 % (11.6-14.8); White Blood Cell Count 7.9 X10^3/uL (4.5-11.0)
[2024-08-11 19:21] LABS: Hemoglobin A1C% w Est Avg Glu 7.2 % (4.0-6.0)
[2024-08-11 19:29] LABS: Alanine Aminotransferase 24 IU/L (<50); Albumin 4.2 g/dL (3.5-5.0); Albumin Globulin Ratio 1.4 (1.0-2.8); Alkaline Phosphatase 37 U/L (38-126); Aspartate Aminotransferase 33 IU/L (17-59); BUN Creatinine Ratio 28.5 (6-22); Bilirubin Total 0.6 mg/dL (0.2-1.3); Blood Urea Nitrogen 43 mg/dL (9-20); Calcium 9.6 mg/dL (8.4-10.2); Carbon Dioxide 28 mmol/L (22-32); Chloride 106 mmol/L (98-107); Estimated Glomerular Filt Rate 45 mL/min (>60); Globulin 2.9 g/dL (1.7-4.1); Glucose 111 mg/dL (80-110); HEMOLYSIS < 15 (0-50); Potassium 4.7 mmol/L (3.4-5.1); Sodium 142 mmol/L (137-145); Total Protein 7.1 g/dL (6.3-8.2)
[2024-08-11 19:50] LABS: Creatinine Urine Random 72.57 mg/dL
== END ==
PROVIDERS: Family Provider Family Medicine; PCP Family Medicine; Visit Provider Family Medicine
DX: I48.91 Unspecified atrial fibrillation (principal); D64.9 Anemia, unspecified; E11.65 Type 2 diabetes mellitus with hyperglycemia; E11.3299 Type 2 diabetes mellitus with mild nonproliferative diabetic retinopathy without macular edema, unspecified eye; E11.22 Type 2 diabetes mellitus with diabetic chronic kidney disease; I12.9 Hypertensive chronic kidney disease with stage 1 through stage 4 chronic kidney disease, or unspecified chronic kidney disease; N18.2 Chronic kidney disease, stage 2 (mild); E11.40 Type 2 diabetes mellitus with diabetic neuropathy, unspecified; R41.89 Other symptoms and signs involving cognitive functions and awareness; N63.0 Unspecified lump in unspecified breast; Z78.9 Other specified health status
CPT/HCPCS: 80053; 82043; 82570; 83036; 85025

== ENCOUNTER → 2024-11-20 13:05 | Outpatient (CLI) | payer OTHER, SELFPAY ==
[2024-11-20 19:24] LABS: Add Manual Diff / Slide Review NO; Basophils Absolute Auto 100 /uL (0-100); Basophils Percent Auto 0.7 % (0-2); Eosinophils Absolute Auto 300 /uL (0-450); Hematocrit 35.8 % (41-53); Hemoglobin 12.7 g/dL (13.5-17.5); Lymphocytes Absolute Auto 2000 /uL (1100-4500); Lymphocytes Percent Auto 26.7 % (25-40); Mean Corpuscular HGB Conc 35.5 % (30-36); Mean Corpuscular Hemoglobin 32.1 PG (26-34); Mean Corpuscular Volume 90.4 fL (80-100); Monocytes Absolute Auto 500 /uL (0-900); Monocytes Percent Auto 6.8 % (3-14); Neutrophils Absolute Auto 4700 /uL (1500-7000); Neutrophils Percent Auto 61.8 % (50-75); Platelet Count 199 X10^3/uL (150-400); Red Blood Cell Count 3.96 X10^6/uL (4.5-5.9); Red Cell Distribution Width 13.3 % (11.6-14.8); White Blood Cell Count 7.5 X10^3/uL (4.5-11.0)
[2024-11-20 19:26] LABS: Alanine Aminotransferase 34 IU/L (<50); Albumin 4.3 g/dL (3.5-5.0); Albumin Globulin Ratio 1.5 (1.0-2.8); Alkaline Phosphatase 41 U/L (38-126); Aspartate Aminotransferase 36 IU/L (17-59); BUN Creatinine Ratio 22.7 (6-22); Bilirubin Total 0.6 mg/dL (0.2-1.3); Blood Urea Nitrogen 56 mg/dL (9-20); Carbon Dioxide 26 mmol/L (22-32); Chloride 101 mmol/L (98-107); Estimated Glomerular Filt Rate 25 mL/min (>60); Globulin 2.9 g/dL (1.7-4.1); Glucose 235 mg/dL (80-110); HEMOLYSIS < 15 (0-50); Sodium 138 mmol/L (137-145); Total Protein 7.2 g/dL (6.3-8.2)
[2024-11-20 19:54] LABS: Thyroid Stimulating Hormone 1.33 uIU/mL (0.47-4.68)
[2024-11-20 19:58] LABS: Prostate Specific Antigen Scrn < 0.064 ng/mL (0.1-4.0)
[2024-11-20 20:01] LABS: Ferritin 171 ng/mL (18-464)
[2024-11-20 20:13] LABS: Vitamin B12 546 pg/mL (239-931)
== END ==
PROVIDERS: PCP Family Medicine; Visit Provider Family Medicine
DX: D64.9 Anemia, unspecified (principal); N18.9 Chronic kidney disease, unspecified; F03.90 Unspecified dementia, unspecified severity, without behavioral disturbance, psychotic disturbance, mood disturbance, and anxiety; E11.65 Type 2 diabetes mellitus with hyperglycemia; C61 Malignant neoplasm of prostate; E11.22 Type 2 diabetes mellitus with diabetic chronic kidney disease; I12.9 Hypertensive chronic kidney disease with stage 1 through stage 4 chronic kidney disease, or unspecified chronic kidney disease; N18.2 Chronic kidney disease, stage 2 (mild); E11.3299 Type 2 diabetes mellitus with mild nonproliferative diabetic retinopathy without macular edema, unspecified eye; Z12.5 Encounter for screening for malignant neoplasm of prostate; L08.1 Erythrasma; D51.9 Vitamin B12 deficiency anemia, unspecified
CPT/HCPCS: 80053; 82607; 82728; 84443; 85025; G0103

== ENCOUNTER → 2024-12-03 11:15 | Outpatient (CLI) | payer OTHER, SELFPAY ==
[2024-12-03 19:48] LABS: BUN Creatinine Ratio 22.8 (6-22); Blood Urea Nitrogen 34 mg/dL (9-20); Calcium 9.8 mg/dL (8.4-10.2); Carbon Dioxide 26 mmol/L (22-32); Chloride 103 mmol/L (98-107); Estimated Glomerular Filt Rate 46 mL/min (>60); Glucose 144 mg/dL (80-110); HEMOLYSIS 23 (0-50); Potassium 4.8 mmol/L (3.4-5.1); Sodium 137 mmol/L (137-145)
== END ==
PROVIDERS: Internal Medicine; PCP Family Medicine; Visit Provider Family Medicine
DX: N17.9 Acute kidney failure, unspecified (principal)
CPT/HCPCS: 80048

== ENCOUNTER → 2025-01-26 13:02 | Outpatient (CLI) | payer OTHER, SELFPAY ==
[2025-01-26 18:54] LABS: Albumin 4.1 g/dL (3.5-5.0); BUN Creatinine Ratio 25.2 (6-22); Blood Urea Nitrogen 39 mg/dL (9-20); Calcium 9.1 mg/dL (8.4-10.2); Carbon Dioxide 26 mmol/L (22-32); Chloride 103 mmol/L (98-107); Digoxin 1.6 ng/mL (0.8-2.0); Estimated Glomerular Filt Rate 44 mL/min (>60); Glucose 154 mg/dL (70-99); HEMOLYSIS < 15 (0-50); Potassium 4.7 mmol/L (3.4-5.1); Sodium 137 mmol/L (137-145)
[2025-01-26 19:29] LABS: Ferritin 109 ng/mL (18-464)
[2025-01-26 20:26] LABS: Add Manual Diff / Slide Review NO; Basophils Absolute Auto 100 /uL (0-100); Basophils Percent Auto 0.9 % (0-2); Eosinophils Absolute Auto 300 /uL (0-450); Eosinophils Percent Auto 4.1 % (2-4); Hemoglobin 12.4 g/dL (13.5-17.5); Lymphocytes Absolute Auto 1900 /uL (1100-4500); Lymphocytes Percent Auto 28.4 % (25-40); Mean Corpuscular HGB Conc 35.4 % (30-36); Mean Corpuscular Hemoglobin 32.1 PG (26-34); Mean Corpuscular Volume 90.7 fL (80-100); Monocytes Absolute Auto 500 /uL (0-900); Monocytes Percent Auto 7.3 % (3-14); Neutrophils Absolute Auto 3900 /uL (1500-7000); Neutrophils Percent Auto 59.3 % (50-75); Platelet Count 166 X10^3/uL (150-400); Red Blood Cell Count 3.86 X10^6/uL (4.5-5.9); Red Cell Distribution Width 13.7 % (11.6-14.8); White Blood Cell Count 6.6 X10^3/uL (4.5-11.0)
== END ==
PROVIDERS: PCP Family Medicine; Referring Provider Family Medicine; Visit Provider Family Medicine
DX: D64.9 Anemia, unspecified (principal); I50.9 Heart failure, unspecified; K92.2 Gastrointestinal hemorrhage, unspecified; E11.649 Type 2 diabetes mellitus with hypoglycemia without coma
CPT/HCPCS: 80069; 80162; 82728; 85025

== ENCOUNTER → 2025-03-12 13:20 | Outpatient (CLI) | payer OTHER, SELFPAY ==
[2025-03-12 19:25] LABS: Hematocrit 36.9 % (41-53); Hemoglobin 12.6 g/dL (13.5-17.5)
[2025-03-12 19:47] LABS: Alanine Aminotransferase 25 IU/L (<50); Albumin 4.3 g/dL (3.5-5.0); Albumin Globulin Ratio 1.5 (1.0-2.8); Alkaline Phosphatase 42 U/L (38-126); Aspartate Aminotransferase 30 IU/L (17-59); BUN Creatinine Ratio 34.8 (6-22); Bilirubin Total 0.5 mg/dL (0.2-1.3); Blood Urea Nitrogen 54 mg/dL (9-20); Calcium 9.2 mg/dL (8.4-10.2); Carbon Dioxide 26 mmol/L (22-32); Chloride 105 mmol/L (98-107); Estimated Glomerular Filt Rate 44 mL/min (>60); Globulin 2.8 g/dL (1.7-4.1); Glucose 165 mg/dL (70-99); HEMOLYSIS < 15 (0-50); Potassium 4.9 mmol/L (3.4-5.1); Sodium 140 mmol/L (137-145); Total Protein 7.1 g/dL (6.3-8.2)
[2025-03-12 19:53] LABS: Digoxin 1.3 ng/mL (0.8-2.0)
[2025-03-12 20:21] LABS: Ferritin 110 ng/mL (18-464)
== END ==
PROVIDERS: PCP Family Medicine; Visit Provider Family Medicine
DX: E11.22 Type 2 diabetes mellitus with diabetic chronic kidney disease (principal); N18.4 Chronic kidney disease, stage 4 (severe); L89.329 Pressure ulcer of left buttock, unspecified stage; D64.9 Anemia, unspecified; I50.9 Heart failure, unspecified
CPT/HCPCS: 80053; 80162; 82728; 85014; 85018

== ENCOUNTER → 2025-04-27 13:02 | Outpatient (CLI) | payer OTHER, SELFPAY ==
[2025-04-27 20:34] LABS: Hematocrit 31.9 % (41-53); Hemoglobin 10.8 g/dL (13.5-17.5)
[2025-04-27 20:44] LABS: HEMOLYSIS < 15 (0-50); Iron 121 ug/dL (49-181)
[2025-04-27 20:49] LABS: Alanine Aminotransferase 19 IU/L (<50); Albumin 3.6 g/dL (3.5-5.0); Albumin Globulin Ratio 1.3 (1.0-2.8); Alkaline Phosphatase 41 U/L (38-126); Blood Urea Nitrogen 49 mg/dL (9-20); Calcium 8.9 mg/dL (8.4-10.2); Carbon Dioxide 26 mmol/L (22-32); Chloride 105 mmol/L (98-107); Estimated Glomerular Filt Rate 38 mL/min (>60); Globulin 2.7 g/dL (1.7-4.1); Glucose 133 mg/dL (70-99); HEMOLYSIS < 15 (0-50); Sodium 138 mmol/L (137-145); Total Protein 6.3 g/dL (6.3-8.2)
[2025-04-27 20:54] LABS: Percent Iron Saturation 41 % (20-50); Total Iron Binding Capacity 294 ug/dL (261-462); Transferrin 234 mg/dL (206-381)
[2025-04-27 21:01] LABS: Potassium 5.4 mmol/L (3.4-5.1)
[2025-04-27 21:22] LABS: Ferritin 162 ng/mL (18-464)
== END ==
PROVIDERS: PCP Family Medicine; Visit Provider Family Medicine
DX: D64.9 Anemia, unspecified (principal)
CPT/HCPCS: 80053; 82728; 83540; 83550; 85014; 85018